=== PATIENT | male | born 1975 | race Caucasian/White ===

== ENCOUNTER 2016-06-14 10:39 | Day surgery (SDC) | payer BC ==
[~2016-06-14 10:39] MED LIST: DIPRIVAN 10 MG/ML IV ONE; SUBLIMAZE ONE; XYLOCAINE MPF 2% ONE
--- NOTE | 2016-06-14 11:10 | Anesthesia Consultation ---
Anesthesia Consult and Med Hx Date of service: 06/14/16 (Right Ureteoscopy with Stent Placement) - Airway Anesthetic Teeth Evaluation: Good ROM Head & Neck: Adequate Mental/Hyoid Distance: Adequate Mallampati Class: Class II Intubation Access Assessment: Probably Good - Pulmonary Exam CTA: Yes - Cardiac Exam Cardiac Exam: RRR Anesthetic Concerns: Tachy - Pre-Operative Health Status ASA Pre-Surgery Classification: ASA2 Proposed Anesthetic Plan: General - Cardiovascular System Hx Hypertension: Yes - Additional Comments Anesthesia Medical History Comments: HTN - Lisinopril. Kidney Stone. Hydronephrosis
--- NOTE | 2016-06-14 11:13 | Anesthesia Day of Surgery ---
Anesthesia Day of Surgery - Day of Surgery Patient Examined: Yes Patient H&P Reviewed: Yes Patient is NPO: Yes (NPO since [place])
[2016-06-14] MEDS ORDERED: VERSED ONE (11:14)
[2016-06-14] MEDS ORDERED: PEPCID IV ONE (11:14)
[2016-06-14] MEDS ORDERED: LACTATED RINGERS 1,000 ML ONE (11:14)
[2016-06-14] MEDS ORDERED: VERSED IV NR ×2 (11:29→12:00)
[2016-06-14] MEDS ORDERED: NACL 0.9% 100 ML ONE (11:50)
[2016-06-14] MEDS ORDERED: ZOFRAN ONE ×2 (11:50→15:14)
[2016-06-14] MEDS ORDERED: NEO SYNEPHRINE ONE (11:50)
[2016-06-14] MEDS ORDERED: DECADRON ONE (11:50)
[2016-06-14] MEDS ORDERED: ePHEDrine SULFATE ONE (11:59)
[2016-06-14] MEDS ORDERED: PEPCID IV NR (12:00)
[2016-06-14] MEDS ORDERED: ANCEF/STERILE WATER 2 GM/20 ML IV NR (12:00)
[2016-06-14] MEDS ORDERED: LACTATED RINGERS 1,000 ML IV SCH (12:00)
[2016-06-14] MEDS ORDERED: DIPRIVAN 10 MG/ML IV ONE (12:06)
[2016-06-14] MEDS ORDERED: OMNIPAQUE (300 MG) IR ONE (12:07)
[2016-06-14] MEDS ORDERED: WATER FOR IRRIG STERILE IR ONE (12:07)
--- NOTE | 2016-06-14 12:23 | Post Anesthesia Evaluation ---
- Post Anesthesia Evaluation Patient Participated: Yes Airway Patent: Yes Stable Respiratory Function: Yes Nausea/Vomiting: No Temp > 96.8F: Yes Pain Manageable: Yes Adequeate Hydration: Yes Anesthesia Complications: No Block Receding Appropriately: Not Applicable Patient on Ventilator: No
[2016-06-14] MEDS ORDERED: DILAUDID ONE (12:30)
--- NOTE | 2016-06-14 13:24 | Post Operative Note ---
Pre-op diagnosis: r upper ureteral stone Post-op diagnosis: same Findings: impacted stone Procedure: cysto r uerteroscopy j stent Anesthesia: GETA Surgeon: GARY CHAVARRIA Estimated blood loss: none Pathology: none Condition: stable Disposition: PACU
--- NOTE | 2016-06-14 13:25 | Discharge Summary ---
Short Stay Discharge Plan Activity: other (no straining ) Weight Bearing Status: Full Weight Bearing Diet: regular Special Instructions: other (inc fluids ) Durable Medical Equipment Needed Upon Discharge: other (pt has j stent ) Follow up with: WILLIS GREENFIELD MD [Primary Care Provider] - 7 Days GARY CHAVARRIA MD [Staff Physician] - 7 Days
--- NOTE | 2016-06-14 14:01 | Fluoroscopy Report ---
Retrograde pyelogram: The news camera person image demonstrates a calculus overlying the L3 transverse process on the right. Injection of contrast into the distal right ureter demonstrates an obstruction to flow in the right ureter at the level of the calculus. The small amount of contrast passing cephalad into the renal collecting system demonstrates dilated calyces. A ureteroscope loop wire was passed into the renal pelvis. Additional injection of contrast into the renal pelvis demonstrated gross distention and caliectasis. An internal stent was left in place. The calculus may not have been removed based on one of the latter images.
--- NOTE | 2016-06-14 14:13 | Operative Report ---
PREOPERATIVE DIAGNOSES: Severe right hydronephrosis, right upper ureteral stone. POSTOPERATIVE DIAGNOSES: Severe right hydronephrosis, right upper ureteral stone. PROCEDURE: Cystoscopy, right retrograde, right ureteral balloon dilatation, flexible ureteroscopy with insertion of double-J stent. SURGEON: Shoaib Prieto MD ANESTHESIA: General. FINDINGS: This is a gentleman with severe hydronephrosis. He initially had severe pain, and he now has no pain, but moderate to severe hydronephrosis. All risks and complications were discussed. DESCRIPTION OF PROCEDURE: The patient was brought to the operating room and placed on the operating table. Following induction of anesthesia, placed in lithotomy position, prepped and draped in usual sterile fashion. Cystourethroscopy showed no bladder lesions. Retrograde showed a very tight ureter with a large stone in the upper ureter with severe hydronephrosis. We were able to place two wires and flexible ureteroscopy through severe edema around the stone. We did not try to laser or do anything, we just backed out. One of the wires, when we came out with the ureteroscope, just spontaneous the safety wire came out. We left the other wire and we had trouble inserting a stent anything by the stone. We were concerned about the tightness along the wire and we were able to just to be safe changed this wire into a 0.25 wire and placed a vascular open-ended 4-Israeli catheter in the kidney. There was no extravasation. We injected a good amount of dye. At this point, we still had trouble even getting the catheter by the stone with the wire clearly coiled in the kidney. We then withdrew the wire and left the open-ended catheter, right at the tip of the stone and placed the more rigid wire. This went and coiled in the kidney and now we were able to get the open-ended catheter coiling in the kidney and we injected the dye, again no extravasation, very hydronephrotic swollen kidney. At this point, we left that for a few minutes as this self dilated as much as possible and we were able to place, although it was tight, a 4.8 Israeli 24 cm double J coiled in the kidney and bladder. The patient tolerated the procedure well. Again, no extravasation and if it does not drain well, he will need a percutaneous nephrostomy to cool this kidney down. He was brought to recovery in stable condition. [facility]# [id number] ANGELINA/RALPH
[2016-06-14] MEDS ORDERED: ZOFRAN IV ONE (16:00)
[2016-06-14 17:34] VITALS: BP 126/84
== END 2016-06-14 15:30 | disposition home or self-care (01) ==
LOC: OR 10:39 → EDSTATUS 16:45
PROVIDERS: ATTEND Urology
DX: N13.2 Hydronephrosis with renal and ureteral calculous obstruction (principal); I10 Essential (primary) hypertension
CPT/HCPCS: 52332; 74420; A4217; C1726; C1751; C1758; C1769; C2617; J0690; J1100; J1170; J2250; J2370; J2405; J2704; J3010; J7120; Q9967